=== PATIENT | female | born 1945 | race Caucasian/White ===

== ENCOUNTER 2021-06-01 12:53 | Emergency (ER) | payer MEDICARE, OTHER ==
[~2021-06-01] VITALS: Ht 165 cm; Wt 113.4 kg
[2021-06-01] MEDS ORDERED: DEXTROSE 50% 50 ML (IMS) SYR ONE (13:00)
[2021-06-01 13:26] LABS: BASOPHILS # (AUTO) 0.1 10^3/uL (0.0-0.1); BASOPHILS % (AUTO) 1 % (0-10); EOSINOPHILS % (AUTO) 0 % (0-10); HEMATOCRIT 26 % (35-52); HEMOGLOBIN 8.2 g/dL (11.5-16.0); LYMPHOCYTES # (AUTO) 1.3 10^3/uL (1.0-4.0); LYMPHOCYTES % (AUTO) 8 % (12-44); MEAN CORPUSCULAR HEMOGLOBIN 24 pg (25-34); MEAN CORPUSCULAR HGB CONC 32 g/dL (32-36); MEAN CORPUSCULAR VOLUME 76 fL (80-99); MEAN PLATELET VOLUME 11.1 fL (9.0-12.2); MONOCYTES # (AUTO) 0.5 10^3/uL (0.0-1.0); MONOCYTES % (AUTO) 3 % (0-12); NEUTROPHILS # (AUTO) 13.7 10^3/uL (1.8-7.8); NEUTROPHILS % (AUTO) 84 % (42-75); PLATELET COUNT 227 10^3/uL (130-400); WHITE BLOOD COUNT 16.3 10^3/uL (4.3-11.0)
[2021-06-01] MEDS ORDERED: morphine INJ 10 MG/ML 1ML (SYR OR VIAL) IVP STA (13:27)
--- NOTE | 2021-06-01 13:27 | ED Neurological Problem ---
General Chief Complaint: Altered Mental Status Stated Complaint: AMS Source: patient Exam Limitations: no limitations (DEEP MELGAR APRN) History of Present Illness Date Seen by Provider: Jun 01, 2021 Time Seen by Provider: 13:20 Initial Comments To ER by [facility] with reports of altered mental status not eating or dri nking for 1 week. On their arrival she was found to be 84% on room air up to 94% with 4 L supplemental oxygen. No IV access established. They found a blood sugar of 39 but did not believe it was real. Timing/Duration: 1 week Severity: moderate Associated Symptoms: confusion (DEEP MELGAR APRN) Allergies and Home Medications Allergies Coded Allergies: No Known Drug Allergies (Unverified , 11/01/14) Patient Home Medication List Home Medication List Reviewed: Yes (DEEP MELGAR APRN) Review of Systems Review of Systems Constitutional: see HPI Eyes: No Symptoms Reported Ears, Nose, Mouth, Throat: no symptoms reported Respiratory: no symptoms reported Cardiovascular: no symptoms reported Genitourinary: no symptoms reported Musculoskeletal: no symptoms reported Skin: no symptoms reported Psychiatric/Neurological: No Symptoms Reported Endocrine: No Symptoms Reported Hematologic/Lymphatic: No Symptoms Reported (DEEP MELGAR APRN) Physical Exam Vital Signs Vital Signs - First Documented 06/01/21 06/01/21 12:55 16:34 Temp 36.7 Pulse 105 Resp 21 B/P (MAP) 84/66 (72) Pulse Ox 94 O2 Delivery Room Air (JOCELYN HILL MD) Vital Signs Capillary Refill : (DEEP MELGAR APRN) Height, Weight, BMI Height: '" Weight: lbs. oz. kg; BMI Method: General Appearance: WD/WN, no apparent distress, other (Unkempt. Dried fecal material between her legs. Moaning "ohhh!" With any light touch of the skin or movement. We repeated a blood sugar here and found it to be 21 consistent with EMS reading. We established an IV and gave 25 g of dextrose ) Neck: non-tender, full range of motion Respiratory: no respiratory distress, no accessory muscle use Cardiovascular: no murmur, other (A rate of 105. Oxygen does drop to 74% when the oxygen was briefly turned off.) Gastrointestinal: normal bowel sounds, non tender, soft Extremities: normal range of motion, other (Charcot foot bilaterally with ulceration to the plantar surface on the left. No cellulitis to the left foot though there are some erythematous cellulitis changes to the medial left thigh) Neurologic/Psychiatric: alert, normal mood/affect, oriented x 3 Crainal Nerves: normal hearing, normal speech Skin: normal color, warm/dry (DEEP MELGAR APRN) Focused Exam Sepsis Stage: Septic Shock Possible Source: Skin/Soft Tissue (DEEP MELGAR APRN) Lactate Level 06/01/21 13:02: Lactic Acid Level 2.23*H 06/01/21 14:45: Lactic Acid Level 3.71*H (JOCELYN HILL MD) Time of Focused Exam: 14:48 Respiratory: Normal Breath Sounds, No Accessory Muscle Use, No Respiratory Distress Cardiovascular: Regular Rate, Rhythm, Normal Peripheral Pulses Capillary Refill: NONE Skin: normal color, warm/dry (DEEP MELGAR APRN) Lactic Acid Level Laboratory Tests Test 06/01/21 13:02 06/01/21 14:45 Lactic Acid Level 2.23 MMOL/L (0.50-2.00) *H 3.71 MMOL/L (0.50-2.00) *H (JOCELYN HILL MD) Within 3hrs of presentation: Blood cultures prior to ABX's, Focus exam (DEEP MELGAR APRN) Procedures/Interventions Lumen: triple Central Line Procedure: betadine prep, sterile drapes applied Position: internal jugular (R) Anesthesia: Lidocaine Volume Anesthetic (ccs): 4 Complications: none Post Position: sutured, good blood return, position confirmed w/ CXR (Same) (DEEP MELGAR APRN) Progress/Results/Core Measures Results/Orders Lab Results Laboratory Tests Test 06/01/21 12:59 06/01/21 13:02 06/01/21 13:18 06/01/21 13:19 Range/Units Glucometer 21 *L 70-110 MG/DL White Blood Count 16.3 H 4.3-11.0 10^3/uL Red Blood Count 3.38 L 3.80-5.11 10^6/uL Hemoglobin 8.2 L 11.5-16.0 g/dL Hematocrit 26 L 35-52 % Mean Corpuscular Volume 76 L 80-99 fL Mean Corpuscular Hemoglobin 24 L 25-34 pg Mean Corpuscular Hemoglobin Concent 32 32-36 g/dL Red Cell Distribution Width 19.6 H 10.0-14.5 % Platelet Count 227 130-400 10^3/uL Mean Platelet Volume 11.1 9.0-12.2 fL Immature Granulocyte % (Auto) 4 % Neutrophils (%) (Auto) 84 H 42-75 % Lymphocytes (%) (Auto) 8 L 12-44 % Monocytes (%) (Auto) 3 0-12 % Eosinophils (%) (Auto) 0 0-10 % Basophils (%) (Auto) 1 0-10 % Neutrophils # (Auto) 13.7 H 1.8-7.8 10^3/uL Lymphocytes # (Auto) 1.3 1.0-4.0 10^3/uL Monocytes # (Auto) 0.5 0.0-1.0 10^3/uL Eosinophils # (Auto) 0.0 0.0-0.3 10^3/uL Basophils # (Auto) 0.1 0.0-0.1 10^3/uL Immature Granulocyte # (Auto) 0.7 H 0.0-0.1 10^3/uL Neutrophils % (Manual) 49 % Lymphocytes % (Manual) 18 % Monocytes % (Manual) 5 % Metamyelocytes % 2 % Myelocytes % 2 % Band Neutrophils 22 % Atypical Lymphocytes 1 % Reactive Lymphocytes 1 % Toxic Granulation 1+ Clumped Platelets OCCASIONAL Hypochromasia MODERATE Poikilocytosis SLIGHT Microcytosis MODERATE [place] Cells SLIGHT Prothrombin Time 18.9 H 12.2-14.7 SEC INR Comment 1.5 H 0.8-1.4 Activated Partial Thromboplast Time 36 H 24-35 SEC Sodium Level 132 L 135-145 MMOL/L Potassium Level 5.3 H 3.6-5.0 MMOL/L Chloride Level 98 98-107 MMOL/L Carbon Dioxide Level 16 L 21-32 MMOL/L Anion Gap 18 H 5-14 MMOL/L Blood Urea Nitrogen 103 *H 7-18 MG/DL Creatinine 4.19 H 0.60-1.30 MG/DL Estimat Glomerular Filtration Rate 10 BUN/Creatinine Ratio 25 Glucose Level 29 *L 70-105 MG/DL Lactic Acid Level 2.23 *H 0.50-2.00 MMOL/L Calcium Level 9.0 8.5-10.1 MG/DL Corrected Calcium 10.2 H 8.5-10.1 MG/DL Total Bilirubin 0.4 0.1-1.0 MG/DL Aspartate Amino Transf (AST/SGOT) 49 H 5-34 U/L Alanine Aminotransferase (ALT/SGPT) 21 0-55 U/L Alkaline Phosphatase 79 40-136 U/L Total Protein 6.2 L 6.4-8.2 GM/DL Albumin 2.5 L 3.2-4.5 GM/DL Procalcitonin 22.61 H <0.10 NG/ML SARS-CoV-2 RNA (RT-PCR) Not Detected Not Detecte Urine Color YELLOW Urine Clarity CLEAR Urine pH 5.5 5-9 Urine Specific [place] 1.025 H 1.016-1.022 Urine Protein NEGATIVE NEGATIVE Urine Glucose (UA) NEGATIVE NEGATIVE Urine Ketones NEGATIVE NEGATIVE Urine Nitrite NEGATIVE NEGATIVE Urine Bilirubin NEGATIVE NEGATIVE Urine Urobilinogen 0.2 < = 1.0 MG/DL Urine Leukocyte Esterase NEGATIVE NEGATIVE Urine RBC (Auto) NEGATIVE NEGATIVE Urine RBC 0-2 /HPF Urine WBC 5-10 H /HPF Urine Squamous Epithelial Cells 2-5 /HPF Urine Crystals PRESENT H /LPF Urine Amorphous Sediment FEW [place] URATES H /LPF Urine Bacteria FEW H /HPF Urine Casts PRESENT /LPF Urine Hyaline Casts 0-2 H /LPF Urine Mucus NEGATIVE /LPF Urine Culture Indicated YES Blood Gas Puncture Site RT RAD Blood Gas Patient Temperature 36.7 Arterial Blood pH 7.31 *L 7.37-7.43 Arterial Blood Partial Pressure CO2 36 35-45 MMHG Arterial Blood Partial Pressure O2 67 L 79-93 MMHG Arterial Blood HCO3 18 L 23-27 MMOL/L Arterial Blood Total CO2 18.8 L 21.0-31.0 MMOL/L Arterial Blood Oxygen Saturation 91 L 94-100 % Arterial Blood Base Excess -7.5 L -2.5-2.5 MMOL/L Hector Test NA Blood Gas Ventilator Setting NA Blood Gas Inspired Oxygen NA Test 06/01/21 13:54 06/01/21 14:45 Range/Units Glucometer 112 H 70-110 MG/DL Lactic Acid Level 3.71 *H 0.50-2.00 MMOL/L (JOCELYN HILL MD) My Orders Orders - JOCELYN HILL MD D50w (Emergency) Syringe (Dextrose 50% 5 (06/01/21 13:00) (JOCELYN HILL MD) Medications Given in ED Current Medications Medications Dose Ordered Sig/Ashwin Route Start Time Stop Time Status Last Admin Dose Admin Dextrose 50 ml ONCE ONCE IV 06/01/21 13:30 06/01/21 13:31 DC 06/01/21 13:30 50 ML Lorazepam 0.5 mg ONCE PRN IVP 06/01/21 14:30 06/01/21 16:47 DC 06/01/21 14:51 0.5 MG Piperacillin Sod/ Tazobactam Sod 4.5 gm/Sodium Chloride 100 ml @ 200 mls/hr ONCE ONCE IV 06/01/21 14:00 06/01/21 14:29 DC 06/01/21 14:10 200 MLS/HR (JOCELYN HILL MD) Vital Signs/I&O 06/01/21 06/01/21 06/01/21 12:55 15:54 16:34 Temp 36.7 Pulse 105 94 102 Resp 21 18 B/P (MAP) 84/66 (72) 81/43 170/76 Pulse Ox 94 O2 Delivery Room Air OxyMask (JOCELYN HILL MD) Departure Communication (Admissions) Family Conversation NAME: [facility]ARROLL [facility] REC#: [id number] PT STATUS: REG ER : 1945 PHYSICIAN: DEEP MELGAR APRN ADMIT DATE: 06/01/21/ER Draft Date of Exam:06/01/21 CHEST 1 VIEW, AP/PA ONLY Indication: Dyspnea with altered mental status. Comparison: None. Discussion: Single portable upright view of the chest was obtained. Cardiomegaly is present. Hiatal hernia is noted. Mild interstitial thickening could be seen with chronic lung disease though in the acute setting could be seen with mild edema or pneumonia. No pneumothorax or osseous abnormality. Impression: 1. Cardiomegaly. 2. Hiatal hernia. 3. Nonspecific interstitial infiltrates. Dictated on workstation # [id number] Dict: 06/01/21 1421 Trans: 06/01/21 1425 CVB [id number] Interpreted by: PRISCILLA VICK MD Electronically signed by: NAME: CARROLL [facility] REC#: [id number] PT STATUS: REG ER : 1945 PHYSICIAN: DEEP MELGAR APRN ADMIT DATE: 06/01/21/ER Draft Date of Exam:06/01/21 CHEST 1 VIEW, AP/PA ONLY Indication: Central line placement. Comparison: Earlier the same day. Discussion: Single portable upright view of the chest was obtained. New left IJ central venous catheter with tip in the left innominate vein. Cardiomegaly is stable. Left effusion is stable. Hiatal hernia is stable. Mild pulmonary infiltrates are stable. No pneumothorax. Impression: New left IJ central venous catheter with tip in the left innominate vein. Dictated on workstation # [id number] Dict: 06/01/21 1520 Trans: 06/01/21 1524 E [id number] Interpreted by: PRISCILLA VICK MD Electronically signed by: 1449-blood pressures down into the 70s systolic. Decided to proceed with left internal jugular central line placement as she has an EJ on the right side. Spoke with [facility], they have accepted the patient for transfer as we do not have dialysis capabilities here. I spoke with the family, they are trying to decide if they want to go to a facility for dialysis if she would even want that. We have given fentanyl 50 mcg and lorazepam 0.5 mg and her screaming and moaning persists. She is distractible though, she is distracted by talking about food and what she would like to eat. 1518-Family would like to proceed with transfer to the [facility] for nephrology consult/dialysis. They would like dialysis if necessary. THey would like her to be a Do Not Resuscitate. They state that if her heart stops at any time then just "let her go". Dr Blanco has accepted pt at . (DEEP MELGAR APRN) Impression Primary Impression: Septic shock Additional Impressions: Volume depletion ANA (acute kidney injury) Disposition: XFER SHT-TRM HOSP Condition: Stable Transfer Transfer Reason: Exceeds level of care Time Spoke to Accepting Phy: 15:40 Transfer Time: 15:40 Method of Transfer: EMS (DEEP MELGAR APRN) Departure-Patient Inst. Referrals: SUSAN JULIEN DPM (Family) Primary Care Physician ATTENDING PHYSICIAN NOTE: I was physically present as attending physician in the emergency department during the care of this patient, but I was not directly involved in the decision making or delivery of care for this patient. (JOCELYN HILL MD) DEEP MELGAR APRN Jun 01, 2021 13:27 JOCELYN HILL MD Jun 01, 2021 18:34
[2021-06-01 13:28] LABS: BILIRUBIN,URINE NEGATIVE (NEGATIVE); CLARITY,URINE CLEAR; COLOR,URINE YELLOW; GLUCOSE, URINE (UA) NEGATIVE (NEGATIVE); KETONES,URINE NEGATIVE (NEGATIVE); LEUKOCYTE ESTERASE ,URINE NEGATIVE (NEGATIVE); NITRITE,URINE NEGATIVE (NEGATIVE); PH,URINE 5.5 (5-9); PROTEIN,URINE NEGATIVE (NEGATIVE)
[2021-06-01 13:30] LABS: ABG BASE EXCESS -7.5 MMOL/L (-2.5-2.5); ABG OXYGEN SATURATION 91 % (94-100); ABG PCO2 36 MMHG (35-45); ABG PO2 67 MMHG (79-93); ABG TCO2 18.8 MMOL/L (21.0-31.0)
[2021-06-01] MEDS ORDERED: LACTATED RINGERS 1,000 ML IV SCH ×2 (13:30→14:30)
[2021-06-01] MEDS ORDERED: DEXTROSE 50% 50 ML (IMS) SYR IV ONE (13:30)
[2021-06-01 13:31] LABS: ALBUMIN 2.5 GM/DL (3.2-4.5); POTASSIUM 5.3 MMOL/L (3.6-5.0)
[2021-06-01 13:32] LABS: INR 1.5 (0.8-1.4); PROTHROMBIN TIME PATIENT 18.9 SEC (12.2-14.7)
[2021-06-01 13:32] LABS: ABG PH 7.31 (7.37-7.43); PATIENT TEMP 36.7
[2021-06-01 13:33] LABS: TOTAL PROTEIN 6.2 GM/DL (6.4-8.2)
[2021-06-01 13:35] LABS: BILIRUBIN,TOTAL 0.4 MG/DL (0.1-1.0)
[2021-06-01 13:37] LABS: CREATININE SERUM 4.19 MG/DL (0.60-1.30)
[2021-06-01 13:39] LABS: AMORPHOUS SEDIMENT,UR FEW AMOR URATES /LPF; BACTERIA,URINE FEW /HPF; HYALINE CASTS, URINE 0-2 /LPF; RBC,URINE 0-2 /HPF
[2021-06-01 13:48] LABS: BAND NEUTROPHILS 22 %; LYMPHOCYTES % (MANUAL) 18 %; METAMYELOCYTES % 2 %; MONOCYTES % (MANUAL) 5 %; MYELOCYTES % 2 %; NEUTROPHILS % (MANUAL) 49 %
[2021-06-01 13:49] LABS: ATYPICAL LYMPHOCYTES 1 %; BURR CELLS SLIGHT; HYPOCHROMASIA MODERATE; MICROCYTOSIS MODERATE; PLATELET CLUMPS OCCASIONAL; POIKILOCYTOSIS SLIGHT; REACTIVE LYMPHOCYTES 1 %; TOXIC GRANULATION/VACUOLAZATIO 1+
[2021-06-01] MEDS ORDERED: PIPERACILLIN SODIUM/TAZOBACTAM 4.5 GM in NS (IVPB) 100 ML IV ONE (14:00)
[2021-06-01] MEDS ORDERED: fentaNYL INJ 100 MCG/2 ML AMP IVP ONE (14:00)
--- NOTE | 2021-06-01 14:25 | Diagnostic Imaging Report ---
Indication: Dyspnea with altered mental status. Comparison: None. Discussion: Single portable upright view of the chest was obtained. Cardiomegaly is present. Hiatal hernia is noted. Mild interstitial thickening could be seen with chronic lung disease though in the acute setting could be seen with mild edema or pneumonia. No pneumothorax or osseous abnormality. Impression: 1. Cardiomegaly. 2. Hiatal hernia. 3. Nonspecific interstitial infiltrates. Dictated by: Dictated on workstation # [id number]
[2021-06-01] MEDS ORDERED: LORazepam INJ 2 MG/ML (ATIVAN) VIAL IVP PRN (14:30)
--- NOTE | 2021-06-01 15:24 | Diagnostic Imaging Report ---
Indication: Central line placement. Comparison: Earlier the same day. Discussion: Single portable upright view of the chest was obtained. New left IJ central venous catheter with tip in the left innominate vein. Cardiomegaly is stable. Left effusion is stable. Hiatal hernia is stable. Mild pulmonary infiltrates are stable. No pneumothorax. Impression: New left IJ central venous catheter with tip in the left innominate vein. Dictated by: Dictated on workstation # [id number]
[2021-06-01] MEDS ORDERED: NOREPINEPHRINE 8 MG/250 ML 250 ML IV SCH (16:00)
[2021-06-01 16:34] VITALS: BP 170/76
== END 2021-06-01 16:34 | disposition short-term general hospital (02) ==
LOC: EDUNIT# 12:53 → ER 12:55
DX: E86.9 Volume depletion, unspecified (principal); R65.21 Severe sepsis with septic shock; N17.9 Acute kidney failure, unspecified; Z20.822 Contact with and (suspected) exposure to COVID-19
CPT/HCPCS: 36415; 51702; 71045; 80053; 81000; 82805; 82947; 83605; 84145; 85007; 85027; 85610; 85730; 87040; 87077; 87088; 87636; 99291